=== PATIENT | female | born 1990 | race Caucasian/White ===

== ENCOUNTER 2017-01-29 21:11 | Emergency (ER) | payer OTHER ==
[~2017-01-29] VITALS: Ht 165.1 cm; Wt 64.6 kg
[~2017-01-29 21:11] MED LIST: BACTRIM,SEPT1 TABLET PO; DIFLUCAN150 MG PO; KEFLEX500 MG PO; MACROBID100 MG PO; MOTRIN600 MG PO; MOTRIN800 MG PO; NAPROSYN500 MG PO; NORCO 5/3251 TABLET PO; PHENERGAN25 MG PR; PRENATAL TABLE1 EACH PO; ZOFRAN8 MG PO
[2017-01-29 21:56] LABS: HEMATOCRIT 36.2 % (36.0-46.0); MCH 27.5 PG (29.0-34.0); MCHC 33.4 G/DL (30.0-36.0); MCV 82.3 FL (83-99); MEAN PLAT.VOLUME 10.9 uM^3 (9.5-12.4); PLATELET COUNT 191 K/uL (156-360); RBC DIS.WIDTH-CV 13.4 % (11.8-14.6); RBC DIS.WIDTH-SD 39.4 % (39-53); WHITE BLOOD COUNT 3.4 K/uL (4.1-10.2)
[2017-01-29 22:04] LABS: CHLORIDE 105 mEq/L (99-109); POTASSIUM 3.7 mEq/L (3.7-5.4); SODIUM 138 mEq/L (136-147)
[2017-01-29 22:05] LABS: GLUCOSE 91 mg/dL (70-99)
[2017-01-29 22:07] LABS: ANION GAP 9 MEQ/L (2-14)
[2017-01-29 22:09] LABS: GFR ESTIMATE (CALCULATED) > 59 mL/min/
[2017-01-29 22:10] LABS: UREA NITROGEN (BUN) 12 mg/dL (9-23)
[2017-01-29 22:16] LABS: TROP-I INTERPRETATION NEGATIVE; TROPONIN-I 0.02 ng/mL (0.0-0.30)
[2017-01-29 22:46] LABS: TOTAL BILIRUBIN 0.2 mg/dL (0.0-1.0)
[2017-01-29 22:47] LABS: ALKALINE PHOSPHATASE 60 IU/L (3-129)
[2017-01-29 22:48] LABS: D-DIMER ELISA 0.44 mg/L FEU (< 0.57)
[2017-01-29 22:49] LABS: DIRECT BILIRUBIN 0.1 mg/dL (0.0-0.3)
[2017-01-29 22:50] LABS: LIPASE 18 U/L (1.0-51.0)
[2017-01-29 22:58] LABS: QUANTITATIVE HCG < 4.0 MIU/ML
[2017-01-29 23:38] VITALS: BP 132/82
== END 2017-01-29 23:52 | disposition home or self-care (01) ==
LOC: EME 21:11
PROVIDERS: Emergency Medicine
DX: R07.89 Other chest pain (principal); R20.2 Paresthesia of skin
CPT/HCPCS: 71020; 80048; 80076; 83690; 84484; 84702; 85027; 85379; 93005; 99281; 99284; J1885

== ENCOUNTER → 2018-07-27 | Outpatient (CLI) | payer OTHER ==
[~2018-07-27] VITALS: Ht 165.1 cm; Wt 67.6 kg
[~2018-07-27] MED LIST changes: +IMITREX100 MG PO
== END | disposition home or self-care (01) ==
LOC: AMB 07:30
PROC: 0DJD8ZZ Inspection of Lower Intestinal Tract, Via Natural or Artificial Opening Endoscopic (ICD-10-PCS; principal; 2018-07-27)
DX: K59.00 Constipation, unspecified (principal); Z80.0 Family history of malignant neoplasm of digestive organs; Z88.2 Allergy status to sulfonamides; Z88.1 Allergy status to other antibiotic agents; Z91.040 Latex allergy status; Z91.018 Allergy to other foods
CPT/HCPCS: J0131; J2250; J3010